=== PATIENT | female | born 1955 | race Caucasian/White ===

== ENCOUNTER 2020-09-30 10:04 | Inpatient (IN) | payer BC, SELFPAY ==
[2020-09-30] VITALS (18 sets, daily range): BP systolic 98–147; BP diastolic 63–114; PULSE 88–112; RESP 14–22; TEMP 36.4–36.8; O2SAT 7–98; BMI 40.6; BMI 39.6
--- NOTE | 2020-09-30 10:21 | EKG12_ITS ---
Test Reason : Blood Pressure : / mmHG Vent. Rate : 106 BPM Atrial Rate : 106 BPM P-R Int : 122 ms QRS Dur : 080 ms QT Int : 352 ms P-R-T Axes : 079 071 060 degrees QTc Int : 467 ms Sinus tachycardia Minimal voltage criteria for LVH, may be normal variant Borderline ECG Confirmed by EMILIA MCCLURE, ROSA ([id number]), editorial manager VANDANA SMALLS ([id number]) on 10/01/2020 1:03:00 PM Referred By: JULIO Confirmed By:ROSA NEITO MD
--- NOTE | 2020-09-30 10:21 | RAD_ITS ---
STUDY: X-RAY CHEST REASON FOR EXAM: Female, 64 years old. sob TECHNIQUE: Single AP portable view of the chest. COMPARISON: 02/11/2017 FINDINGS: The lungs are clear and expanded. There is no demonstrated pleural abnormality. Normal size heart. Normal mediastinum and roxana. Normal visualized pulmonary arteries. Normal visualized aortic arch and descending thoracic aorta. Normal visualized thoracic spine. Normal visualized ribs, clavicles, and shoulders. There is no demonstrated abnormality of the visualized soft tissue structures of the upper abdomen. RAD/Chest 1 View (Portable) IMPRESSION: Normal x-ray examination of the chest. Electronically Signed: Anibal Benavides MD at 11:51 EDT Tel , Service support ,
--- NOTE | 2020-09-30 10:23 | EX.ED.DYSGE1 ---
HPI History of Present Illness Chief Complaint: Shortness of Breath Informant: patient and family Onset/Context/Timing Onset: Days (6) Context: Gradual Onset Current Severity: Moderate Maximum Severity: Moderate Narrative Narrative: 64-year-old female presenting with shortness of breath. Patient states this has been progressively worsening over the past several days. She saw her primary care physician on Thursday and states she has been progressively worsening since that time. She complains of productive cough. She denies fever. She has chest pain intermittently. She denies vomiting or diarrhea. Denies exposure to Covid. Prior similar symptoms: Yes Recent Illness/Hospitalization: No [facility] Medical History (Updated 09/30/20 @ 13:[address] Beverley Bonner MD) COPD (chronic obstructive pulmonary disease) Hypertension Home Medications amlodipine 10 mg PO DAILY 02/11/17 [History Last Taken 09/30/20] aspirin 81 mg PO DAILY 02/11/17 [History Last Taken 09/29/20] Allergy/AdvReac Type Severity Reaction Status Date / Time codeine Allergy palpitation Verified 09/30/20 10:04 s diphenhydramine Allergy palpitation Verified 09/30/20 10:04 [From Benadryl] s erythromycin base Allergy palpitation Verified 09/30/20 10:04 s shellfish derived Allergy Angioedema Verified 09/30/20 10:04 ALL PAIN MEDS Allergy palpitation Uncoded 09/30/20 10:04 s Social History Smoking Status: Heavy Smoker (>10/day) ROS ROS ED Constitutional Constitutional ED: Denies fever(s) Eyes Eyes: Denies change in vision ENT ENT ED: Denies rhinorrhea or sore throat Cardiovascular Cardiovascular: Reports chest pain; Denies palpitations Respiratory/Chest Respiratory/Chest: Reports cough, dyspnea and sputum Gastrointestinal Gastrointestinal: Denies abdominal pain, diarrhea, nausea or vomiting Genitourinary Genitourinary ED: Denies dysuria Musculoskeletal Musculoskeletal: Denies myalgias Integumentary Denies rash Neurologic Neurologic: Denies headache(s) Psychiatric Psychiatric: Denies suicidal thoughts EXAM Physical Exam Const Vital Signs: 09/30/20 10:05 09/30/20 10:14 09/30/20 10:24 Temperature 97.6 F L Temperature Source Oral Pulse Rate 110 H 108 H Respiratory Rate 22 H Respiratory Effort Short of Breath Respiratory Pattern Tachypnea Blood Pressure 147/114 H 128/78 H Blood Pressure Mean 125 94 Pulse Ox 93 94 Oxygen Delivery Method Room Air Room Air Room Air Oxygen Flow Rate (L/min) 09/30/20 10:33 09/30/20 10:37 09/30/20 10:44 Temperature 97.6 F L Temperature Source Oral Pulse Rate 108 H 96 Respiratory Rate 22 H 20 H Respiratory Effort Respiratory Pattern Normal Blood Pressure 128/78 H Blood Pressure Mean 94 Pulse Ox 97 Oxygen Delivery Method Nasal Cannula Nasal Cannula Oxygen Flow Rate (L/min) 2 2 09/30/20 11:59 09/30/20 12:47 09/30/20 12:50 Temperature 97.9 F Temperature Source Oral Pulse Rate 103 H 99 Respiratory Rate 14 17 Respiratory Effort Respiratory Pattern Blood Pressure 98/63 119/98 H Blood Pressure Mean 74 105 Pulse Ox 98 97 7 Oxygen Delivery Method Nasal Cannula Nasal Cannula Nasal Cannula Oxygen Flow Rate (L/min) 2 2 2 09/30/20 13:03 Temperature Temperature Source Pulse Rate 90 Respiratory Rate 17 Respiratory Effort Respiratory Pattern Blood Pressure 144/69 H Blood Pressure Mean 94 Pulse Ox 98 Oxygen Delivery Method Nasal Cannula Oxygen Flow Rate (L/min) 2 Positive well nourished and well developed General Appearance ED: well developed HEENT Reports normocephalic and head/scalp atraumatic Eyes PERRL and EOMs intact bilaterally Neck supple General: Negative for tenderness Chest Wall inspection of chest normal Resp normal respiratory effort Auscultation: wheezes and diminished lung sounds Cardio regular rhythm Rate: tachycardic GI non-tender and non-distended Palpation: soft; Negative for guarding or rebound tenderness present no CVA tenderness Extremity normal to inspection Neuro oriented x3 Sensorium / Orientation: alert Psych mental status grossly normal MDM MDM MDM Narrative Medical decision making narrative: Patient was given albuterol, Atrovent aerosols. D-dimer was elevated. CTA chest was obtained which shows no evidence of PE. She has some improvement of her lung sounds after breathing treatments. Her Covid was negative. Her troponin was 0.322. She was given aspirin. She has no chest pain currently. She was given Solu-Medrol IV. Discussed with hospitalist for admission. Lab Data Attestation: I reviewed the patient's lab results. Labs: Laboratory Results - last 24 hr 09/30/20 09/30/20 09/30/20 10:40 10:40 10:40 WBC 10.6 RBC 5.20 Hgb 14.0 Hct 45.4 MCV 87.3 MCH 26.9 L MCHC 30.8 L RDW Std Deviation 45.1 H RDW Coeff of Jaye 14.0 Plt Count 319 MPV 9.7 Immature Gran % (Auto) 0.200 Neut % (Auto) 70.6 H Lymph % (Auto) 15.9 L [place] % (Auto) 7.4 Eos % (Auto) 5.0 Baso % (Auto) 0.9 Absolute Neuts (auto) 7.4 Absolute Lymphs (auto) 1.68 Nucleated RBC % 0 D-Dimer Quant (PE/DVT) 0.63 H* Sodium 137 Potassium 3.7 Chloride 102 Carbon Dioxide 31.0 Anion Gap 4 L BUN 12 Creatinine 0.79 Estim Creat Clear Calc 58.40 Est GFR (MDRD) Af Amer 95 Est GFR (MDRD) Non-Af 79 BUN/Creatinine Ratio 15.3 Glucose 105 Lactic Acid Calcium 9.1 Total Bilirubin 0.30 AST 11 L ALT 19 Alkaline Phosphatase 135 H Troponin I 0.322 H Total Protein 8.0 Albumin 3.7 Globulin 4.3 H Albumin/Globulin Ratio 0.9 09/30/20 10:40 WBC RBC Hgb Hct MCV MCH MCHC RDW Std Deviation RDW Coeff of Jaye Plt Count MPV Immature Gran % (Auto) Neut % (Auto) Lymph % (Auto) [place] % (Auto) Eos % (Auto) Baso % (Auto) Absolute Neuts (auto) Absolute Lymphs (auto) Nucleated RBC % D-Dimer Quant (PE/DVT) Sodium Potassium Chloride Carbon Dioxide Anion Gap BUN Creatinine Estim Creat Clear Calc Est GFR (MDRD) Af Amer Est GFR (MDRD) Non-Af BUN/Creatinine Ratio Glucose Lactic Acid 1.1 Calcium Total Bilirubin AST ALT Alkaline Phosphatase Troponin I Total Protein Albumin Globulin Albumin/Globulin Ratio Radiography Chest X-Ray - ED: 1 View, Read by ED Physician and Read by Radiologist Diagnostic Testing: Radiology Impression Chest X-Ray 09/30/20 10:21 IMPRESSION: Normal x-ray examination of the chest. Electronically Signed: Anibal Benavides MD at 11:51 EDT Tel , Service support , Chest CTA 09/30/20 11:17 IMPRESSION: 1. No CT evidence of pulmonary embolism. 2. Mild emphysema with some lingular discoid atelectasis. Electronically Signed: Anibal Benavides MD at 12:43 EDT Tel , Service support , EKG Initial EKG: Attestation: I personally reviewed and interpreted this EKG as follows: Interpretation: No Acute Injury Pattern and Sinus Tachycardia Discharge Plan Triage Chief Complaint: Shortness of Breath ED Provider: Beverley Bonner Dx/Rx/DC Orders Clinical Impression: COPD with acute exacerbation Prescriptions: No Action amlodipine 10 MG tablet 10 mg PO DAILY RF: 0 aspirin 81 MG tablet,chewable 81 mg PO DAILY RF: 0 Primary Care Provider: Tao Parada Referrals: Tao Parada MD [Primary Care Provider] - Disposition Disposition: Acute Care Hospital [facility]
--- NOTE | 2020-09-30 10:29 | NURSING ---
NO OLD EKG
[2020-09-30] MEDS: Ipratropium/Albuterol Sulfate 3 ML AMPUL.NEB INHALATION ×4 (10:44→22:20)
[2020-09-30] MEDS: Albuterol 2.5 MG/3 ML VIAL.NEB. INHALATION ×3 (10:44→10:45)
[2020-09-30 10:51] LABS: Absolute Lymphocyte Count 1.68 X10^3/uL (0.83-4.51); Absolute Neutrophil Count 7.4 X10^3/uL (2.0-7.7); Basophil% 0.9 % (0-1); Eosinophil# 0.53 X10^3/uL; Hematocrit 45.4 % (37-47); Lymphocyte # 1.68 X10^3/ul (0.83-4.51); Lymphocyte % 15.9 % (19-41); Mean Corp Hgb Conc 30.8 g/dL (32-36); Mean Corpuscular Hgb 26.9 pg (27.0-32.0); Mean Corpuscular Volume 87.3 fL (81-99); Mean Platelet Vol. 9.7 fl (6.2-12.0); Monocyte# 0.78 X10^3/uL; Monocyte% 7.4 % (0-10); NRBC Flagged by Analyzer 0 % (0-5); Neutrophil # 7.44 X10^3/uL (2.7-7.7); Neutrophil % 70.6 % (47-70); Platelet Count 319 K/mm3 (150-450); RBC Distribution Width SD 45.1 fl (35.1-43.9); White Blood Count 10.6 K/mm3 (4.4-11.0)
[2020-09-30 11:09] LABS: ALB/GLOB Ratio 0.9 RATIO (0.9-2.4); AST(SGOT) 11 U/L (15-37); Alanine Aminotransfer ALT/SGPT 19 U/L (13-56); Albumin, Serum 3.7 g/dL (3.2-5.0); Alkaline Phosphatase 135 U/L (45-117); Anion Gap 4 (5-15); BUN 12 mg/dL (7-18); BUN/Creat Ratio 15.3 RATIO (10-20); Calcium,Total 9.1 mg/dL (8.5-10.1); Chloride 102 mmol/L (98-107); Creatinine, Serum 0.79 mg/dL (0.55-1.02); EST Glomerular Filtration Rate 79 mL/min (>60); Est Glom Filt Rate - Afr Amer 95 mL/min (>60); Globulin 4.3 g/dL (2.2-4.2); Glucose 105 mg/dL (74-106); Potassium 3.7 mmol/L (3.5-5.1); Sodium Level 137 mmol/L (136-145)
[2020-09-30 11:11] LABS: D-Dimer Quantitative (DVT/PE) 0.63 FEU/ug/m (0.27-0.49)
[2020-09-30 11:12] LABS: Lactic Acid 1.1 mmol/L (0.4-1.9)
--- NOTE | 2020-09-30 11:17 | CT_ITS ---
STUDY: CTA CHEST REASON FOR EXAM: Female, 64 years old. r/o pe RADIATION DOSAGE (If Supplied By Facility): CTDIvol = ( 11.10 ) mGy, DLP = ( 443.44 ) mGycm TECHNIQUE: The examination was performed with the intravenous administration of IV 100mL Isovue-370. Post-processing of the angiographic images was performed, with multiplanar reformation and 3D reconstruction. Individualized dose optimization techniques were used for this CT. COMPARISON: Chest x-ray earlier today FINDINGS: Normal enhancement of the main pulmonary artery and right and left pulmonary arteries. Normal enhancement of the bilateral peripheral pulmonary arteries. There is no demonstrated pulmonary embolism. Normal thoracic aorta and visualized great vessels. There is no demonstrated aortic dissection. Normal heart and pericardium. Normal mediastinum. Normal hilar regions. Normal visualized trachea and bronchi. The lungs are well expanded. Mild erythematous changes. Lingular discoid atelectasis. No noncalcified nodule or mass. Normal pleura. Normal chest wall structures. Normal osseous structures. Status post cholecystectomy. CT/CTA Chest W/WO Contrast IMPRESSION: 1. No CT evidence of pulmonary embolism. 2. Mild emphysema with some lingular discoid atelectasis. Electronically Signed: Anibal Benavides MD at 12:43 EDT Tel , Service support ,
[2020-09-30] MEDS: Aspirin 325 MG Tablet PO (11:59)
--- NOTE | 2020-09-30 13:15 | HP.PCM.HOS_ITS ---
HPI - General General Date of Admission: 09/30/20 HPI Narrative The patient is a 64 y/o F w/ PMHx: Chronic COPD, HTN who presents to the [facility] ED on 09/30/20 with progressively worsening dyspnea over the last several days with PCP evaluation on the Thursday prior to this with productive cough of only clear sputum with reported difficulty bringing anything up with no fevers or chills with intermittent chest discomfort concurrently, described as a chest tightness, primarily with her respiratory symptoms, but family notes she has complained of heaviness sensation but again intermittent and improves with improvement of her respiratory status. She notes that the heaviness is primarily midsternal and goes towards her back, rated 8 out of 10 when it is occurring but improves when she is able to catch her breath with no associated nausea, emesis or diaphoresis. In the ED upon presentation patient is noted to be significantly dyspneic, tripoding. Work-up in the ED included T 97.9, heart rate 99, BP 119/98, respiratory rate 17, initially 94% on room air however improved to 98% on 2 L nasal cannula, CBC with WBC 10.6, hemoglobin 14, platelet 319 without marked shift, D-dimer 0.63, CMP not marked appearing aside alk phos 135, troponin 0.322 chest x-ray with no acute cardiopulmonary findings, follow-up CTPA with no evidence of pulmonary embolism however mild emphysematous changes w ith some lingular discoid atelectasis, rapid SARS Covid antigen negative, EKG was sinus tachycardia with no acute evidence of ischemia. In the patient administered Solu-Medrol 125 mg IV x1, DuoNeb therapy as well as aspirin 325 mg p.o. x1. Upon hospitalist evaluation in the ED patient continues to have significant increased work of breathing, still tripoding after coughing fit therefore discussed with respiratory therapy and will obtain ABG as well as likely transition to BiPAP. [facility] Medical History COPD (chronic obstructive pulmonary disease) Hypertension Tobacco use Home Medications amlodipine 10 mg PO DAILY 02/11/17 [History Last Taken 09/30/20] aspirin 81 mg PO DAILY 02/11/17 [History Last Taken 09/29/20] Allergy/AdvReac Type Severity Reaction Status Date / Time codeine Allergy palpitation Verified 09/30/20 10:04 s diphenhydramine Allergy palpitation Verified 09/30/20 10:04 [From Benadryl] s erythromycin base Allergy palpitation Verified 09/30/20 10:04 s shellfish derived Allergy Angioedema Verified 09/30/20 10:04 ALL PAIN MEDS Allergy palpitation Uncoded 09/30/20 10:04 s Family History (Updated 09/30/20 @ 13:[address] Belle An MD) Mother COPD (chronic obstructive pulmonary disease) Father CAD (coronary artery disease) Heart disease Hypertension Surgical History (Updated 09/30/20 @ 13:[address] Belle An MD) H/O of hysterectomy with bilateral oophorectomy Hx laparoscopic cholecystectomy S/P tonsillectomy Social History (Updated 09/30/20 @ 13:[address] Belle An MD) household members: spouse Smoking Status: Current every day smoker tobacco type: cigarettes Smoking packs per day: 1.5 Smoking cigarettes per day: 30.0 alcohol intake: never ROS ROS Narrative Admission Review of Systems: CONSTITUTIONAL: No weight loss, fever, chills, + weakness or fatigue. HEENT: Eyes: No visual loss, blurred vision, double vision or yellow sclerae. Ears, Nose, Throat: No hearing loss, sneezing, congestion, runny nose or sore throat. SKIN: No rash or itching, lesions, wounds. CARDIOVASCULAR: + chest pain, chest pressure or chest discomfort, No palpitations, edema, orthopnea, syncopal events. RESPIRATORY: + shortness of breath, cough without marked sputum, wheezing, No hemoptysis. GASTROINTESTINAL: No anorexia, nausea, vomiting or diarrhea, abdominal pain, melena, BRBPR. GENITOURINARY: No dysuria, frequency, urgency or retention. NEUROLOGICAL: No headache, dizziness, syncope, paralysis, ataxia, numbness or tingling in the extremities, focal weakness, change in bowel or bladder control, seizure. MUSCULOSKELETAL: + muscle, back pain, joint pain or stiffness. HEMATOLOGIC: No anemia, bleeding or bruising. LYMPHATICS: No enlarged nodes. No history of splenectomy. PSYCHIATRIC: No history of depression or anxiety. ENDOCRINOLOGIC: No reports of sweating, cold or heat intolerance. No polyuria or polydipsia. ALLERGIES: No history of asthma, hives, eczema or rhinitis. Vital Signs Vital Signs Vital Signs: 09/30/20 10:05 09/30/20 10:14 09/30/20 10:24 Temperature 97.6 F L Temperature Source Oral Pulse Rate 110 H 108 H Respiratory Rate 22 H Respiratory Effort Short of Breath Respiratory Pattern Tachypnea Blood Pressure 147/114 H 128/78 H Blood Pressure Mean 125 94 Pulse Ox 93 94 Oxygen Delivery Method Room Air Room Air Room Air Oxygen Flow Rate (L/min) 09/30/20 10:33 09/30/20 10:37 09/30/20 10:44 Temperature 97.6 F L Temperature Source Oral Pulse Rate 108 H 96 Respiratory Rate 22 H 20 H Respiratory Effort Respiratory Pattern Normal Blood Pressure 128/78 H Blood Pressure Mean 94 Pulse Ox 97 Oxygen Delivery Method Nasal Cannula Nasal Cannula Oxygen Flow Rate (L/min) 2 2 09/30/20 11:59 09/30/20 12:47 09/30/20 12:50 Temperature 97.9 F Temperature Source Oral Pulse Rate 103 H 99 Respiratory Rate 14 17 Respiratory Effort Respiratory Pattern Blood Pressure 98/63 119/98 H Blood Pressure Mean 74 105 Pulse Ox 98 97 7 Oxygen Delivery Method Nasal Cannula Nasal Cannula Nasal Cannula Oxygen Flow Rate (L/min) 2 2 2 09/30/20 13:03 Temperature Temperature Source Pulse Rate 90 Respiratory Rate 17 Respiratory Effort Respiratory Pattern Blood Pressure 144/69 H Blood Pressure Mean 94 Pulse Ox 98 Oxygen Delivery Method Nasal Cannula Oxygen Flow Rate (L/min) 2 Physical Exam Narrative Physical Examination: General: awake, alert, oriented x 3 and cooperative, seated upright in ED bed, still pursed lip breathing, increased work of breathing, evident distress, audible wheezing, discussed with RT and ABG being obtained with requested BiPAP consideration Skin: normal color, turgor, no icterus, cyanosis. HEENT: AT/NC, EOMI, PERRLA, dry MM, no carotid bruits or JVD noted however th ickened neck makes exam difficult, pursed lip breathing. Lungs: Diffusely diminished with expiratory ongoing wheezing, audible, increased work of breathing, accessory muscle usage, tripoding, evident distress, no rales or rhonchi. Heart: Mildly tachycardic with regular rhythm; no gallop, rub audible. Abdomen: soft, morbidly obese, NTTP, ND, normal BS, no HSM. Extremities: no cyanosis, clubbing, or edema. Neurological: patient awake, alert, oriented as noted, cognitive function intact; pupils equally reactive to light and accommodation, cranial nerves II- XII grossly normal, moving all 4 extremities, no focal deficits, strength severely global decrease secondary to acute presentation. Psychiatric: affect appears fatigued, respiratory distress evident, no acute evidence of depressive or anxiety feelings. Lab / Micro Data Result Diagrams: 09/30/20 10:40 09/30/20 10:40 Labs: Laboratory Results - last 24 hr 09/30/20 09/30/20 09/30/20 10:40 10:40 10:40 WBC 10.6 RBC 5.20 Hgb 14.0 Hct 45.4 MCV 87.3 MCH 26.9 L MCHC 30.8 L RDW Std Deviation 45.1 H RDW Coeff of Jaye 14.0 Plt Count 319 MPV 9.7 Immature Gran % (Auto) 0.200 Neut % (Auto) 70.6 H Lymph % (Auto) 15.9 L [place] % (Auto) 7.4 Eos % (Auto) 5.0 Baso % (Auto) 0.9 Absolute Neuts (auto) 7.4 Absolute Lymphs (auto) 1.68 Nucleated RBC % 0 D-Dimer Quant (PE/DVT) 0.63 H* Sodium 137 Potassium 3.7 Chloride 102 Carbon Dioxide 31.0 Anion Gap 4 L BUN 12 Creatinine 0.79 Estim Creat Clear Calc 58.40 Est GFR (MDRD) Af Amer 95 Est GFR (MDRD) Non-Af 79 BUN/Creatinine Ratio 15.3 Glucose 105 Lactic Acid Calcium 9.1 Total Bilirubin 0.30 AST 11 L ALT 19 Alkaline Phosphatase 135 H Troponin I 0.322 H Total Protein 8.0 Albumin 3.7 Globulin 4.3 H Albumin/Globulin Ratio 0.9 09/30/20 10:40 WBC RBC Hgb Hct MCV MCH MCHC RDW Std Deviation RDW Coeff of Jaye Plt Count MPV Immature Gran % (Auto) Neut % (Auto) Lymph % (Auto) [place] % (Auto) Eos % (Auto) Baso % (Auto) Absolute Neuts (auto) Absolute Lymphs (auto) Nucleated RBC % D-Dimer Quant (PE/DVT) Sodium Potassium Chloride Carbon Dioxide Anion Gap BUN Creatinine Estim Creat Clear Calc Est GFR (MDRD) Af Amer Est GFR (MDRD) Non-Af BUN/Creatinine Ratio Glucose Lactic Acid 1.1 Calcium Total Bilirubin AST ALT Alkaline Phosphatase Troponin I Total Protein Albumin Globulin Albumin/Globulin Ratio Micro: Microbiology 09/30/20 10:40 SARS-CoV-2 Antigen (Rapid) - Final Interface Orders Radiology Impression Chest X-Ray 09/30/20 10:21 IMPRESSION: Normal x-ray examination of the chest. Electronically Signed: Anibal Benavides MD at 11:51 EDT Tel , Service support , Chest CTA 09/30/20 11:17 IMPRESSION: 1. No CT evidence of pulmonary embolism. 2. Mild emphysema with some lingular discoid atelectasis. Electronically Signed: Anibal Benavides MD at 12:43 EDT Tel , Service support , Assessment & Plan Assessment/Plan (1) Acute respiratory failure with hypoxia: (2) COPD with acute exacerbation: (3) Cardiac enzymes elevated: PLAN: The patient is a 64 y/o F w/ PMHx: Chronic COPD, HTN who presents to the [facility] ED on 09/30/20 with progressively worsening dyspnea over the last several days with PCP evaluation on the Thursday prior to this with productive cough of only clear sputum with reported difficulty bringing anything up with no fevers or chills with intermittent chest discomfort concurrently, described as a chest tightness. 1. Acute Hypoxic Respiratory Failure secondary to Acute on Chronic COPD exacerbation: Work-up in the ED included T 97.9, heart rate 99, BP 119/98, respiratory rate 17, initially 94% on room air however improved to 98% on 2 L nasal cannula, CBC with WBC 10.6, hemoglobin 14, platelet 319 without marked shift, D-dimer 0.63, CMP not marked appearing aside alk phos 135, troponin 0.322 chest x-ray with no acute cardiopulmonary findings, follow-up CTPA with no evide nce of pulmonary embolism however mild emphysematous changes with some lingular discoid atelectasis, rapid SARS Covid antigen negative, EKG was sinus tachycardia with no acute evidence of ischemia. Will admit to PCU, pending ABG per discussion with RT in the ED, will plan BiPAP and less appropriate NC, maintain on oxygen with wean as tolerated to room air, continue ATC duonebs, PRN albuterol, IV methylprednisolone, HOB, IS parameters, defer abx as afebrile without marked WBC elevation or L shift, request sputum Cx. 2. Indeterminate cardiac enzyme concerning for NSTEMI, likely secondary to #1 with demand: EKG in ED w/ sinus tachycardia with no acute evidence of ischemia, CXR w/ no acute cardiopulmonary findings and follow-up CTPA without any evidence of acute pulmonary embolism with significant COPD/emphysematous changes. Trop elevated, 0.322. Will maintain on a monitored bed, continue serial cardiac enzymes and EKGs. Obtain magnesium level upon admission. Start therapeutic lovenox. ECHO requested. Continue medical management w/ asa, add statin, defer BB given #1 w/ AM FLP. Will continue to trend enzymes and if further rise will request Cardiology consultation. ASA, NG, morphine. 3. Hypertension: Given #1 will defer any addition of beta-antoine therapy in the setting of #2, will continue at this time patient Norvasc, may need transition to alternate therapy i.e. SUSANA inhibitor given #2, as needed IV hydralazine in interim. 4. Hyperlipidemia: Patient notes recent outpatient FLP that was elevated with intention per PCP to initiate statin therapy, adding high-dose statin, FLP pending. 5. Prediabetes mellitus type II: Patient reports recent outpatient hemoglobin A1c 6%, will maintain on ADA diet to be cautious given his history and if sugars notably elevated will add insulin sliding scale with Accu-Cheks but will defer at this time. Nutrition consulted for education and teaching. 6. Morbid Obesity: Weight loss and lifestyle changes encouraged, nutrition consulted. 7. Tobacco Abuse: Encouraged cessation, inpatient consultation per RT, declined NR. 8. DVT prophylaxis: SCDs, therapeutic Lovenox pending cardiac enzyme trending. 9. CODE STATUS: Full code. Visit Charges Inpatient E&M: 95325 Init Hosp L3
[2020-09-30] MEDS: MethylPREDNISolone 125 MG/2 ML Vial IV (13:18)
[2020-09-30 14:17] LABS: Allen Test POS; Blood Gas Specimen Type ART; O2 Delivery Device Nasal Can; SITE L RADIAL
[2020-09-30 14:18] LABS: Time Given 1400
[2020-09-30 14:19] LABS: Base Excess 2 mmol/L (-2 to +2); Bicarbonate 26.8 mmol/L (22-26); PO2 88 mmHG (75-100); SO2 97 % (95-99); Total Carbon Dioxide 28 mmol/L; pCO2 44.2 mmHg (35-45); pH 7.39 (7.35-7.45)
--- NOTE | 2020-09-30 14:31 | ECHOD_ITS ---
Reason For Study: CHF Procedure This was a 2D Doppler, Color Flow transthoracic echocardiogram. Technically difficult parasternal images. Breath Dependent. Exam performed portable in patient room. Left Ventricle Normal LV size. Mild concentric left ventricular hypertrophy. Left ventricular systolic function is normal. The estimated ejection fraction is 60 %. Stage 1 diastolic dysfunction. No regional wall motion abnormalities noted. Right Ventricle Normal RV size. Normal systolic function. Atria Normal left atrium. Normal right atrium. Mitral Valve Normal mitral valve. Tricuspid Valve Normal tricuspid valve. Mild tricuspid valve insufficiency. Pulmonary artery systolic pressure is 28 mmHg. Aortic Valve Trisinus/trileaflet aortic valve. Pulmonic Valve Normal pulmonic valve. Great Vessels Normal aortic root. Pericardium/Pleural No pericardial effusion. MMode/2D Measurements & Calculations LVIDd: 4.1 cm IVSd: 1.2 cm LA dimension: 3.1 cm LVIDs: 2.6 cm LVPWd: 1.3 cm RVDd: 3.3 cm FS: 36.4 % LAV(MOD-bp): 52.2 ml LA A4 area: 15.3 cm2 RA A4 area: 12.5 cm2 LAV(MOD-bp) Indexed: 26.1 ml/m2 LAV(MOD-sp2): 60.9 ml LAV(MOD-sp4): 39.5 ml Time Measurements MV dec time: 0.26 sec Doppler Measurements & Calculations MV E max oswald: 87.4 cm/sec Lat Peak E' Oswald: 6.3 cm/sec Med Peak E' Oswald: 8.5 cm/sec MV A max oswald: 137.0 cm/sec E/E' lat: 14.0 E/E' med: 10.3 MV E/A: 0.64 MV V2 max: 145.4 cm/sec MV P1/2t max oswald: 104.0 cm/sec Ao V2 max: 146.1 cm/sec MV max P.5 mmHg MV P1/2t: 67.7 msec Ao max P.5 mmHg MV V2 mean: 70.8 cm/sec MV dec slope: 449.6 cm/sec2 MV mean P.4 mmHg MVA(P1/2t): 3.2 cm2 MV V2 VTI: 32.2 cm LV V1 max: 121.2 cm/sec PA V2 max: 124.2 cm/sec TR max oswald: 241.1 cm/sec LV V1 max P.9 mmHg TR max P.3 mmHg ECHO/Echo Complete Interpretation Summary Normal LV size. Left ventricular systolic function is normal. The estimated ejection fraction is 60 %. Stage 1 diastolic dysfunction. Mild concentric left ventricular hypertrophy. Ordering Physician: Belle An Referring Physician: Tao Parada Performed By: Jaswant Urban RCS
[2020-09-30] MEDS: 0.9% Normal Saline 1,000 ML 100 ML IV (15:34)
[2020-09-30] MEDS: Enoxaparin 100 MG/ML Syringe SC (21:38)
--- NOTE | 2020-09-30 22:51 | NURSING ---
reviewed troponin results with patient and importance of lovenox. pt agreed to receive this medication. lovenox given at bedtime.
[2020-09-30] MEDS: hydrOXYzine 10 MG Tablet PO (23:05)
[2020-10-01] VITALS (23 sets, daily range): BP systolic 105–161; BP diastolic 52–82; PULSE 74–114; RESP 16–20; TEMP 36.2–36.7; O2SAT 92–96
[2020-10-01] MEDS: 0.9% Normal Saline 1,000 ML 100 ML IV ×3 (01:45→21:17)
--- NOTE | 2020-10-01 02:23 | NURSING ---
4th troponin result noted to be trending down at 0.977
--- NOTE | 2020-10-01 05:55 | EKG12_ITS ---
Test Reason : AM EKG Blood Pressure : / mmHG Vent. Rate : 088 BPM Atrial Rate : 088 BPM P-R Int : 128 ms QRS Dur : 082 ms QT Int : 370 ms P-R-T Axes : 078 074 114 degrees QTc Int : 447 ms Sinus rhythm with marked sinus arrhythmia Nonspecific T wave abnormality Abnormal ECG When compared with ECG of 30-SEP-2020 10:40, MANUAL COMPARISON REQUIRED, DATA IS UNCONFIRMED Confirmed by EMILIA MCCLURE, ROSA ([id number]), editor department VANDANA SMALLS ([id number]) on 10/02/2020 8:50:54 AM Referred By: AHSAN Confirmed By:ROSA NITEO MD
[2020-10-01 06:32] LABS: Absolute Lymphocyte Count 0.61 X10^3/uL (0.83-4.51); Absolute Neutrophil Count 9.1 X10^3/uL (2.0-7.7); Basophil# 0.01 X10^3/uL; Basophil% 0.1 % (0-1); Hematocrit 39.2 % (37-47); Hemoglobin 12.5 g/dL (12.0-15.0); Lymphocyte # 0.61 X10^3/ul (0.83-4.51); Lymphocyte % 6.2 % (19-41); Mean Corp Hgb Conc 31.9 g/dL (32-36); Mean Corpuscular Hgb 28.2 pg (27.0-32.0); Mean Corpuscular Volume 88.3 fL (81-99); Mean Platelet Vol. 10.1 fl (6.2-12.0); Monocyte# 0.18 X10^3/uL; Monocyte% 1.8 % (0-10); NRBC Flagged by Analyzer 0 % (0-5); Neutrophil # 9.07 X10^3/uL (2.7-7.7); Neutrophil % 91.7 % (47-70); Platelet Count 292 K/mm3 (150-450); RBC Distribution Width CV 13.9 % (11.6-14.6); Red Blood Count 4.44 M/mm3 (4.2-5.4); White Blood Count 9.9 K/mm3 (4.4-11.0)
[2020-10-01] MEDS: Ipratropium/Albuterol Sulfate 3 ML AMPUL.NEB INHALATION ×3 (06:51→18:53)
[2020-10-01 07:05] LABS: ALB/GLOB Ratio 0.9 RATIO (0.9-2.4); AST(SGOT) 10 U/L (15-37); Alanine Aminotransfer ALT/SGPT 17 U/L (13-56); Alkaline Phosphatase 106 U/L (45-117); Anion Gap 5 (5-15); BUN 14 mg/dL (7-18); BUN/Creat Ratio 21.9 RATIO (10-20); Calcium,Total 8.7 mg/dL (8.5-10.1); Chloride 108 mmol/L (98-107); Cholesterol 212 mg/dL (200); Creatinine, Serum 0.64 mg/dL (0.55-1.02); EST Glomerular Filtration Rate 100 mL/min (>60); Est Glom Filt Rate - Afr Amer 121 mL/min (>60); Estimated Creatinine Clearance 72.08 ml/min; Globulin 3.4 g/dL (2.2-4.2); Glucose 138 mg/dL (74-106); High Density Lipoprotein 65 mg/dL; Potassium 4.2 mmol/L (3.5-5.1); Protein, Total 6.4 g/dL (6.4-8.2); Sodium Level 138 mmol/L (136-145); Triglycerides 57 mg/dL; Very Low Density Lipoprotein 11 mg/dL (5-40)
--- NOTE | 2020-10-01 07:30 | CON.PCM.CA_ITS ---
Assessment & Plan Assessment/Plan (1) Cardiac enzymes elevated: PLAN: She does have evidence of cardiac enzyme elevation. She has had no previous cardiac history. At this juncture I would like us to obtain an echocardiogram to assess her ventricular function and then she will be investigated further with a left heart catheterization. The risk benefits and alternatives have been explained to her she understands and agrees to proceed. Addendum: Cardiac catheterization performed the morning demonstrated the following: Left main coronary artery with mild disease. Left anterior descending artery with mild disease. Left circumflex artery with mild disease. Right coronary artery dominant with moderate irregular mid segment disease but no high-grade stenosis. Preserved ejection fraction. Based on the above angiographic findings and review with behavioral school counselors maximum medical therapy would be instituted. (2) HTN (hypertension): QUALIFIERS: Hypertension type: essential hypertension Qualified Code(s): I10 - Essential (primary) hypertension PLAN: She will continue with her current antihypertensive therapy. An echocardiogram will be performed to assess her ventricular function. Thank you for allowing me to participate in her care. HPI Consult Data Date of Consult: 10/01/20 HPI Narrative Reason for Consultation: Cardiac enzymes HPI Narrative: DARIN VASQUEZ, is a 64 F who presents to the emergency room with progressively worsening dyspnea over the last few days as well as a cough which has been going on for a few months. She denies any fever chills but does have intermittent chest discomfort described as a tightness which appears to be primarily with her respiratory symptoms. It is midsternal and goes towards her back. There is no associated nausea emesis or diaphoresis. She had been seen by her primary physician's office who was planning on ordering some test. She presented to the emergency room was noted to have an elevated D-dimer and this was checked with a CTA which did not demonstrate any evidence of pulmonary embolism. Covid antigen test was negative. No abnormal EKG findings were noted, but there was an abnormal troponin elevation present. She has previously not had any dyspnea or chest discomfort with exertion. She is currently pain- free. PFSH Medical History COPD (chronic obstructive pulmonary disease) Hypertension Tobacco use Home Medications amlodipine 10 mg PO DAILY 02/11/17 [History Last Taken 09/30/20] aspirin 81 mg PO DAILY 02/11/17 [History Last Taken 09/29/20] albuterol sulfate 0.63 mg INHALATION Q6H 09/30/20 [History Last Taken 09/30/20 09:00] cyclobenzaprine 10 mg PO TID PRN 09/30/20 [History Last Taken Unknown] hydroxyzine HCl 10 mg PO TID PRN 09/30/20 [History Last Taken 09/09/20] loratadine 10 mg PO DAILY 09/30/20 [History Last Taken 09/29/20 09:00] montelukast 10 mg PO QHS 09/30/20 [History Last Taken 09/29/20 21:00] umeclidinium-vilanterol [Anoro Ellipta] 1 inh INHALATION DAILY PRN 09/30/20 [History Last Taken 09/29/20] Allergy/AdvReac Type Severity Reaction Status Date / Time codeine Allergy palpitation Verified 09/30/20 10:04 s diphenhydramine Allergy palpitation Verified 09/30/20 10:04 [From Benadryl] s erythromycin base Allergy palpitation Verified 09/30/20 10:04 s shellfish derived Allergy Angioedema Verified 09/30/20 10:04 ALL PAIN MEDS Allergy palpitation Uncoded 09/30/20 10:04 s Family History Mother COPD (chronic obstructive pulmonary disease) Father CAD (coronary artery disease) Heart disease Hypertension Surgical History H/O of hysterectomy with bilateral oophorectomy Hx laparoscopic cholecystectomy S/P tonsillectomy Social History household members: spouse Smoking Status: Current every day smoker tobacco type: cigarettes Smoking packs per day: 1.5 Smoking cigarettes per day: 30.0 alcohol intake: never ROS Constitutional Constitutional: Reports as per HPI Eyes Eyes: Reports as per HPI ENT HEENT: Reports as per HPI Cardiovascular Cardiovascular: Reports chest pain and dyspnea on exertion Respiratory/Chest Respiratory/Chest: Reports dyspnea on exertion Gastrointestinal Gastrointestinal: Reports as per HPI Genitourinary Genitourinary: Reports systems reviewed and no addt'l complaints, except as documented Musculoskeletal Musculoskeletal: Reports systems reviewed and no addt'l complaints, except as documented Integumentary Integumentary: Reports systems reviewed and no addt'l complaints, except as documented Neurologic Neurologic: Reports systems reviewed and no addt'l complaints, except as documented Psychiatric Psychiatric: Reports systems reviewed and no addt'l complaints, except as documented Physical Exam Const oriented x3 and healthy appearing Orientation / Consciousness: awake HEENT normocephalic Eyes PERRL and conjunctivae normal Neck supple, no JVD and no carotid bruits Chest inspection of chest normal Resp normal respiratory effort and clear to auscultation bilaterally Cardio Palpation: normal PMI Rate: regular rate Rhythm: regular rhythm Heart Sounds: S1 normal and S2 normal Peripheral Pulses: pulses 2+ throughout GI normal to inspection, nondistended, normoactive bowel sounds Extremity normal to inspection and no clubbing, cyanosis or edema Psych mental status grossly normal
--- NOTE | 2020-10-01 09:23 | CASEMGMT ---
According to [facility] website, the following tertiary facilities are in network: [facility], [place], [facility], [facility], [facility], [facility], [place], [facility] and .
[2020-10-01] MEDS: Aspirin 81 MG TAB.CHEW PO (10:14)
[2020-10-01] MEDS: Famotidine 20 MG Tablet PO ×2 (10:14→21:15)
--- NOTE | 2020-10-01 11:07 | NURSING ---
Report called to dairy and food laboratory assistant. Pt to dairy and food laboratory assistant for procedure.
--- NOTE | 2020-10-01 11:56 | CL.D_ITS ---
Patient Name: DRAIN VASQUEZ Study Date: 10/01/2020 Performing: Stone Cope MD Ht: 62 inches 157 cm : 1955 Wt: 220.8 lbs 100 kg Age: 64 Gender: female BSA: 1.99 PROCEDURE(S) PERFORMED [id number]-[id number]/COR/LV CLINICAL PROFILE AND INDICATIONS Indications: Suspected CAD Heart Failure: None Stress/Imaging Stress/Image Study Performed: No CONCLUSIONS Moderate diffuse coronary artery disease with no evidence of high-grade stenosis present. RECOMMENDATIONS Medical therapy DESCRIPTION OF PROCEDURE The patient arrived to the procedure lab. The risks and benefits of the procedure as well as a full d escription of our services here and current unavailability of surgical backup were fully explained to the patient and/or their significant other prior to the catheterization. The Timeout was completed, verifying the correct patient and procedure. The patient's procedural site was prepped and draped in the usual fashion. Local anesthetic was given subcutaneously to right radial region with Lidocaine 2% . Using a modified Seldinger technique, arterial access was obtained via the right radial artery, a 6 Fr sheath was inserted. Left Coronary Artery selective angiography was performed in multiple views u sing a 5 Fr. 4.0 [place] catheter. Right Coronary Artery selective angiography was then performed in mu ltiple views using a 5 Fr. 4.0 [place] catheter. Left Ventriculography was performed in STAHL projection using a 5 Fr. [place] catheter. LV to AO pullback pressures were then recorded.The arterial sheath was pulled and a TR Band was applied for hemostasis CORONARY ANGIOGRAPHY DOMINANCE: Right Dominant LEFT HEART ASSESSMENT Left Ventricular Ejection Fraction: by LV Gram 60 % Normal LV wall motion Normal Left Ventricular systolic function LEFT MAIN: Mild calcification, Mild nonobstructive disease noted LEFT ANTERIOR DESCENDING ARTERY: Mild nonobstructive disease noted with first and second diagonal ves sels with 40% ostial stenosis present CIRCUMFLEX ARTERY: Mild luminal irregularities less than 30% RIGHT CORONARY ARTERY: Dominant right coronary artery with proximal and mid irregular 50 to 60% steno sis noted with no obvious high-grade stenosis present. Distal right coronary artery with 30% stenosi s noted. COMPLICATIONS No Complications PROCEDURE MEDICATIONS Versed 1 mg IV Fentanyl 50 mcg IV Versed 1 mg IV Oxygen: 2 L/min via nasal cannula Heparin given IA 10/01/2020 11:34:40 Solu-medrol 125 mg IV 10/01/2020 11:28:58 SUMMARY OF HEMODYNAMIC DATA Time AIR REST ECG 11:23:45 AO 128/65 (92) SA 11:34:59 LV 121/9, 15 11:40:33 LV 133/11, 20 11:40:40 LV 121/37, 38 11:41:14 LV 129/15, 19 11:41:21 LVp 129/17, 22 11:41:25 AOp 133/67 (96) 11:41:30 Signed By Stone Cope MD On 10/01/2020 11:55:07 AM Stone Cope MD
--- NOTE | 2020-10-01 14:30 | CASEMGMT ---
BECKY RUTLEDGE Assessment: Face to Face with pt for initial transition planning/care coordination assessment. RN AAMIR introduced self and role at [facility], pt voices understanding and consents to assessment. Pt is A/O x4 and answers all questions appropriately at this time, at bedside. Care providers, pharmacy, and demographics verified/updated. Admitting Dx: COPD exac, resep failure, indeterm troponins PCP: Tal Specialists: Pt denies having any specialists. [facility]erred [facility]acy: [facility] Insurance: [place] Prescription Benefit: yes LNOK: Greg Farah, ; Nohemi Lazar, dtr Living Arrangements: Pt lives in a two story house with 5 steps to enter with rail with . Pt lives on main level only. Pt reports being I in ADL's and denies concerns at home. Transportation: Pt drives self and denies concerns with transportation. DME/HHC/SNF: Pt has a cane and nebulizer at home. Denies any previous HHC or SNF stays. Pt states no concerns with going home at time of dc. 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 Pt states no further concerns/needs. CM to follow. Advised pt to ask CM if any further question/concerns/needs arise, voices understanding. Pt Goal: Home Plan: Home with family support.
--- NOTE | 2020-10-01 19:56 | PCM.PN.HOSP ---
Subjective Subjective: Patient was seen and examined today, I talked briefly with cardiology by phone today, moderate coronary artery disease was noted to be present on her catheterization today but cardiology recommended medical treatment and no intervention at this time. Patient is still on nasal cannula oxygen at the time of my examination. She does not complain of any fevers or chills. Objective Data Objective Data Vital Signs: Vital Signs Temp Pulse Resp BP Pulse Ox 98.1 F 88 16 161/78 H 95 10/01/20 14:20 10/01/20 18:53 10/01/20 18:53 10/01/20 15:00 10/01/20 15:00 Oxygen Flow Rate (L/min) 1 Oxygen Delivery Method Nasal Cannula Weight: 100.3 kg Body Mass Index (BMI) 39.6 Intake & Output: Intake and Output for Last 24 Hours 09/29/20 09/30/20 10/01/20 23:59 23:59 23:59 Intake Total 360 / 660 2261.67 / 2261.67 Balance 360 / 660 2261.67 / 2261.67 Lab / Micro Data Result Diagrams: 10/01/20 05:58 10/01/20 05:58 Labs: Laboratory Results - last 24 hr 09/30/20 10/01/20 10/01/20 22:35 05:58 05:58 WBC 9.9 RBC 4.44 Hgb 12.5 Hct 39.2 MCV 88.3 MCH 28.2 MCHC 31.9 L RDW Std Deviation 45.0 H RDW Coeff of Jaye 13.9 Plt Count 292 MPV 10.1 Immature Gran % (Auto) 0.200 Neut % (Auto) 91.7 H Lymph % (Auto) 6.2 L [place] % (Auto) 1.8 Eos % (Auto) 0.0 Baso % (Auto) 0.1 Absolute Neuts (auto) 9.1 H Absolute Lymphs (auto) 0.61 L Nucleated RBC % 0 Sodium 138 Potassium 4.2 Chloride 108 H Carbon Dioxide 25.0 Anion Gap 5 BUN 14 Creatinine 0.64 Estim Creat Clear Calc 72.08 Est GFR (MDRD) Af Amer 121 Est GFR (MDRD) Non-Af 100 BUN/Creatinine Ratio 21.9 H Glucose 138 H Calcium 8.7 Total Bilirubin 0.20 AST 10 L ALT 17 Alkaline Phosphatase 106 Troponin I 0.977 H* Total Protein 6.4 Albumin 3.0 L Globulin 3.4 Albumin/Globulin Ratio 0.9 Triglycerides 57 Cholesterol 212 H LDL Cholesterol 136 H VLDL Cholesterol 11 HDL Cholesterol 65 Micro: Microbiology 10/01/20 09:50 Sputum, Expectorated/Coughed Gram Stain - Final 09/30/20 14:55 Mucosa - Nose Respiratory Panel (PCR) - Final 09/30/20 10:40 Interface Orders SARS-CoV-2 Antigen (Rapid) - Final Radiography Diagnostic Testing: Radiology Impression Echocardiogram 09/30/20 14:31 Interpretation Summary Normal LV size. Left ventricular systolic function is normal. The estimated ejection fraction is 60 %. Stage 1 diastolic dysfunction. Mild concentric left ventricular hypertrophy. Ordering Physician: Belle An Referring Physician: Tao Parada Performed By: Jaswant Urban RCS Physical Exam Const alert, oriented x3, no apparent distress and healthy appearing General Appearance: cooperative, well kempt and well developed Orientation / Consciousness: awake, oriented to person, oriented to place and oriented to time HEENT normocephalic and moist oral mucous membranes Eyes PERRL, EOMs intact bilaterally and conjunctivae normal Neck nuchal rigidity, supple, no JVD, thyroid normal and no carotid bruits General: trachea midline Resp normal respiratory effort and clear to auscultation bilaterally Auscultation: Negative for rales, rhonchi or wheezes Cardio regular rate, regular rhythm, no murmurs, no rub and no gallops GI normal to inspection, nondistended, normoactive bowel sounds, soft to palpation, non-tender and non-distended Extremity no clubbing, cyanosis or edema Skin no rashes or lesions noted General Skin Exam: no breakdown Neuro oriented x3, CN's II-XII intact bilaterally, no focal motor deficits and no sensory deficits noted Sensorium / Orientation: awake and alert Speech: speech normal Psych thought process normal and affect normal Assessment & Plan Assessment/Plan (1) COPD (chronic obstructive pulmonary disease): QUALIFIERS: COPD type: unspecified COPD Qualified Code(s): J44.9 - Chronic obstructive pulmonary disease, unspecified PLAN: #1 oom-RLSYG-mdoxsks's cardiac catheterization showed left main coronary artery disease with mild disease, left anterior descending artery with mild disease, left circumflex artery with mild disease, right coronary artery with moderate irregular disease but no high-grade stenosis, preserved ejection fraction. Continue on present medications per direction of cardiology #2 acute exacerbation of COPD-continue present treatment, wean oxygen #3 essential hypertension #4 morbid obesity #5 hypoxia secondary to #2-patient has no evidence for acute hypoxic respiratory failure at this time Visit Charges Inpatient E&M: 26993 Subs Hosp L2
[2020-10-01] MEDS: Enoxaparin 100 MG/ML Syringe SC (21:14)
[2020-10-01] MEDS: Metoprolol Tartrate 25 MG Tablet PO (21:14)
[2020-10-01] MEDS: Acetaminophen 325 MG Tablet 650 MG PO (21:15)
[2020-10-01] MEDS: Nicotine Polacrilex 2 MG GUM PO (21:17)
[2020-10-01] MEDS: hydrOXYzine 10 MG Tablet PO (23:07)
[2020-10-02] VITALS (8 sets, daily range): BP systolic 146–173; BP diastolic 72–76; PULSE 68–90; RESP 18–20; TEMP 36.2–36.9; O2SAT 94–95
[2020-10-02] MEDS: 0.9% Normal Saline 1,000 ML 100 ML IV (06:16)
[2020-10-02] MEDS: Ipratropium/Albuterol Sulfate 3 ML AMPUL.NEB INHALATION ×2 (07:15→11:11)
[2020-10-02] MEDS: Aspirin 81 MG TAB.CHEW PO (09:35)
[2020-10-02] MEDS: Metoprolol Tartrate 25 MG Tablet PO (09:35)
[2020-10-02] MEDS: Famotidine 20 MG Tablet PO (09:36)
[2020-10-02] MEDS: hydrOXYzine 10 MG Tablet PO (09:39)
[2020-10-02] MEDS: Enoxaparin 100 MG/ML Syringe SC (09:40)
--- NOTE | 2020-10-02 11:15 | PCM.DC ---
Discharge Instructions Diet Discharge Diet: No restrictions Activity Discharge Activity: - (no driving for 5 days) Weight Bearing Status: Full weight bearing Lifting Restrictions: no lifting above 5 pounds for the next 2 weeks Follow Up Care Test Results: Test results from this visit will be discussed in further detail at your follow-up appointment, if applicable. Discharge Plan Admission Admit Date/Time: 09/30/20 13:26 Primary Reason for Your Visit: exacerbation of COPD, NSTEMI Attending Provider: Anibal Tompkins Primary Care Provider: Tao Parada Consulting Providers: Stone Cope Discharge Orders/Prescriptions Prescriptions: New aspirin 81 mg Tablet,Chewable 81 mg PO DAILY@0800 Qty: 0 RF: 0 atorvastatin 80 mg Tablet 80 mg PO QHS Qty: 30 RF: 0 metoprolol tartrate 25 mg Tablet 25 mg PO BID Qty: 60 RF: 0 prednisone 10 mg tablet 10 mg PO DAILY Qty: 11 RF: 0 Continued amlodipine 10 MG tablet 10 mg PO DAILY RF: 0 aspirin 81 MG tablet,chewable 81 mg PO DAILY RF: 0 cyclobenzaprine 10 mg Tablet 10 mg PO TID PRN (Reason: muscle spasms) RF: 0 albuterol sulfate 0.63 mg/3 mL Solution For Nebulization 0.63 mg INHALATION Q6H RF: 0 montelukast 10 mg Tablet 10 mg PO QHS RF: 0 loratadine 10 mg Tablet 10 mg PO DAILY RF: 0 hydroxyzine HCl 10 mg Tablet 10 mg PO TID PRN (Reason: Anxiety) RF: 0 Anoro Ellipta 62.5-25 mcg/actuation blister with device 1 inh INHALATION DAILY PRN (Reason: Shortness Of Breath Or Wheezing) RF: 0 Referrals / Follow Up: Stone Cope MD [STAFF PHYSICIAN] - (IN 4-6 WEEKS-CALL FOR APPOINTMENT) Tao Parada MD [Primary Care Provider] - In 1 Week Disposition Disposition (needs filled in before D/C Order can be placed): Home, self care
--- NOTE | 2020-10-07 18:42 | PCM.DC.SUM ---
Providers Date of Admission: 09/30/20 Date of Discharge: 10/02/20 Primary Care Physician: Dr. Tao Parada MD Consultations 09/30/20 17:14 Consult: Cardiology Routine Consulting Provider: Stone Cope Reason for Consult: Elevated troponin, Chest pain EMERGENT Consult: No MD Notified: Yes Date Notified:: 09/30/20 Time Notified: 17:14 Method of Notification: MD to MD Reason For Visit: COPD EXAC, RESP FAILURE, INDETERM TROP Diagnosis Discharge Diagnosis (1) COPD (chronic obstructive pulmonary disease): Status: Chronic Code(s): J44.9 - Chronic obstructive pulmonary disease, unspecified Qualifiers: COPD type: unspecified COPD Qualified Code(s): J44.9 - Chronic obstructive pulmonary disease, unspecified Plan: #1 non-WGQYZ-rtzdvcq's cardiac catheterization showed left main coronary artery disease with mild disease, left anterior descending artery with mild disease, left circumflex artery with mild disease, right coronary artery with moderate irregular disease but no high-grade stenosis, preserved ejection fraction #2 acute exacerbation of COPD #3 essential hypertension #4 morbid obesity #5 hypoxia secondary to #2 Patient had no evidence for hypoxic respiratory failure Medications at Discharge Home Medications amlodipine 10 mg PO DAILY 02/11/17 aspirin 81 mg PO DAILY 02/11/17 Anoro Ellipta 1 inh INHALATION DAILY PRN 09/30/20 albuterol sulfate 0.63 mg INHALATION Q6H 09/30/20 cyclobenzaprine 10 mg PO TID PRN 09/30/20 hydroxyzine HCl 10 mg PO TID PRN 09/30/20 loratadine 10 mg PO DAILY 09/30/20 montelukast 10 mg PO QHS 09/30/20 aspirin 81 mg PO DAILY@0800 #0 tab 10/02/20 atorvastatin 80 mg PO QHS #30 tab 10/02/20 metoprolol tartrate 25 mg PO BID #60 tab 10/02/20 prednisone 10 mg PO DAILY #11 tab 10/02/20 Hospital Course Operations None Procedures Cardiac catheterization Summary of Care Provided Minutes Spent on Discharge: 33 Hospital Course: This 64-year-old white female was seen in the emergency room at [facility] with chief complaint of shortness of breath that had been worsening over the past several days. She complains of productive cough denies fever. Patient was given aerosol treatments in the emergency room, her D-dimer was elevated, CTA of the chest showed no evidence of PE. Troponin was 0.322, white blood cell count was normal. Patient was given Solu-Medrol in the emergency room. Patient was admitted to PCU, she was seen in consultation by cardiology, she was treated for acute hypoxic respiratory failure secondary to acute on chronic COPD exacerbation-this examiner did not feel that she had hypoxic respiratory failure, only hypoxia. . Patient's troponins elevated peaking at 1.29, she was felt to have had a non-STEMI. Patient underwent cardiac catheterization on 10/01/2020, there was no evidence of occlusive coronary disease that required stent placement. Patient patient was treated and improved, she did not require home O2 at the time of discharge. On 10/02/2020, patient was seen and examined: On examination she appeared in good health and spirits, she does not appear to be in any distress. Vital signs as documented. Skin warm and dry and without overt rashes. Neck without JVD, thyroid appears normal, trachea is midline, neck is supple. Lungs clear, normal air movement was noted. Heart exam notable for regular rhythm, normal sounds and absence of murmurs, rubs or gallops. Abdomen unremarkable and without evidence of organomegaly, masses, or abdominal aortic enlargement, bowel sounds are present in all 4 quadrants, no abdominal tenderness was noted. Extremities nonedematous, no cyanosis was noted, no clubbing was noted. Neuro: Cranial nerves II through XII are grossly intact, no focal motor deficits were noted, sensation to light touch and pinprick is intact, motor exam 5/5 throughout. Psych: Patient is alert and oriented x3, she does not appear anxious or depressed, she does not appear agitated. Patient appears stable for discharge on 10/02/2020. ABG / Lab / Microbiology Data Result Diagrams: 10/01/20 05:58 10/01/20 05:58 Microbiology: Microbiology 10/01/20 09:50 Sputum, Expectorated/Coughed Gram Stain - Final 10/01/20 09:50 Sputum, Expectorated/Coughed Respiratory Culture - Final 09/30/20 14:55 Mucosa - Nose Respiratory Panel (PCR) - Final 09/30/20 10:40 Interface Orders SARS-CoV-2 Antigen (Rapid) - Final D/C Instructions Discharge Diet: No restrictions Discharge Activity: - (no driving for 5 days) Weight Bearing Status: Full weight bearing Meaningful Use Info Meaningful Use Diagnoses (Choose all that apply): AMI AMI/Post PCI/Angioplasty Aspirin given w/in 24hrs of arrival?: Yes ASA at discharge?: Yes Antiplatelet Therapy at Discharge:: Yes Statins at discharge?: Yes Dg/ARB at discharge?: No Reason Dg/ARB not ordered:: Not indicated Beta Rosibel at discharge?: Yes Done w/ Acute [place] measure.: Yes Documented LVEF (%): 60 Discharge Plan Admission Admit Date/Time: 09/30/20 13:26 Primary Reason for Your Visit: exacerbation of COPD, NSTEMI Attending Provider: Anibal Tompkins Primary Care Provider: Tao Parada Consulting Providers: Stone Cope Instructions Additional Instructions / Restrictions: Patient Problems: Altered Health Status related to Hospitalization Patient Goals: *Optimal Level of Health *Keep Appointments *Medication Compliance *Remain Safe Discharge Orders/Prescriptions Prescriptions: New aspirin 81 mg Tablet,Chewable 81 mg PO DAILY@0800 Qty: 0 RF: 0 atorvastatin 80 mg Tablet 80 mg PO QHS Qty: 30 RF: 0 metoprolol tartrate 25 mg Tablet 25 mg PO BID Qty: 60 RF: 0 prednisone 10 mg tablet 10 mg PO DAILY Qty: 11 RF: 0 Continued amlodipine 10 MG tablet 10 mg PO DAILY RF: 0 aspirin 81 MG tablet,chewable 81 mg PO DAILY RF: 0 cyclobenzaprine 10 mg Tablet 10 mg PO TID PRN (Reason: muscle spasms) RF: 0 albuterol sulfate 0.63 mg/3 mL Solution For Nebulization 0.63 mg INHALATION Q6H RF: 0 montelukast 10 mg Tablet 10 mg PO QHS RF: 0 loratadine 10 mg Tablet 10 mg PO DAILY RF: 0 hydroxyzine HCl 10 mg Tablet 10 mg PO TID PRN (Reason: Anxiety) RF: 0 Anoro Ellipta 62.5-25 mcg/actuation blister with device 1 inh INHALATION DAILY PRN (Reason: Shortness Of Breath Or Wheezing) RF: 0 Referrals / Follow Up: Stone Cope MD [STAFF PHYSICIAN] - (IN 4-6 WEEKS-CALL FOR APPOINTMENT) Tao Parada MD [Primary Care Provider] - In 1 Week Disposition Disposition (needs filled in before D/C Order can be placed): Home, self care Visit Charges Inpatient E&M: 02101 Disch Hosp
== END 2020-10-02 13:26 | disposition home or self-care (01) | DRG 281 ==
LOC: ED 13:19 → PCU 13:35
PROVIDERS: Nurse Practitioner Family; Admitting Provider Family Medicine; Emergency Provider Emergency Medicine; PCP Internal Medicine; Visit Provider Internal Medicine
DX: I21.4 Non-ST elevation (NSTEMI) myocardial infarction (principal); J44.1 Chronic obstructive pulmonary disease with (acute) exacerbation; I25.10 Atherosclerotic heart disease of native coronary artery without angina pectoris; I10 Essential (primary) hypertension; E78.5 Hyperlipidemia, unspecified; E66.01 Morbid (severe) obesity due to excess calories; R09.02 Hypoxemia; F17.210 Nicotine dependence, cigarettes, uncomplicated; Z68.39 Body mass index [BMI] 39.0-39.9, adult; Z79.82 Long term (current) use of aspirin; Z79.899 Other long term (current) drug therapy
CPT/HCPCS: 36415; 36600; 71045; 71275; 80053; 80061; 82803; 83605; 84145; 84484; 85025; 85379; 87070; 87205; 87426; 87633; 93005; 93306; 93458; 94640; 97802; 99152; 99153; 99285; 99406; J7030; Q9957; Q9967; A4216; C1769; C1894